=== PATIENT | male | born 1945 | race Caucasian/White ===

== ENCOUNTER 2018-12-19 06:08 | Observation (INO) | payer OTHER ==
[~2018-12-19] VITALS: Ht 182.9 cm; Wt 104.3 kg
--- NOTE | ~2018-12-19 | OP ---
[address] [address] OPERATIVE REPORT Name: LILIANA MCMANUS Room: [address]#: [id number] Admission: 12/19/18 Attend Phys: Viv Murcia MD Discharge: Date of : 49 Report #: [id number] THIS REPORT FOR: //name// CC: Melvin Murcia DATE OF SERVICE: 12/19/2018 SURGEON: Malorie Snyder DPM. LINE CLOSER: Janak Mckeon DPM PREOPERATIVE DIAGNOSES: 1. Achilles tendon rupture, left foot. 2. Retrocalcaneal exostosis, left foot. POSTOPERATIVE DIAGNOSES: 1. Insertional Achilles tendon rupture, left foot. 2. Retrocalcaneal exostosis, left foot. PROCEDURE: Repair of insertional Achilles tendon rupture with exostectomy and V-Y tendon lengthening, left foot. ANESTHESIA: General with popliteal block and local infiltrated block. HEMOSTASIS: Pneumatic thigh tourniquet at 350 mmHg. ESTIMATED BLOOD LOSS: Less than 5 mL. MATERIALS USED: Arthrex SpeedBridge, Arthrex amniotic matrix, 2-0 Vicryl, 4-0 Vicryl and 4-0 nylon. INJECTABLES: 20 mL of a 1:1 mixture of 0.5% Marcaine plain and 1% lidocaine plain. COMPLICATIONS: None. PROCEDURE IN DETAIL: The patient was brought into the operating room and then placed under general anesthesia. At this time, a pneumatic thigh tourniquet was then placed with adequate padding noted to the left lower extremity. After adequate sedation was obtained, the patient was placed on the operating room table in the prone position with surgical site clearly marked. At this time, the left lower extremity was then scrubbed, prepped and draped in the usual aseptic fashion. At this time, a timeout was performed with all personnel in the room in agreement. Left lower extremity was then exsanguinated utilizing an Esmarch bandage and the pneumatic thigh tourniquet was then inflated to [address] [place] [address] OPERATIVE REPORT Name: LILIANA MCMANUS Room: [address]#: [id number] Admission: 12/19/18 Attend Phys: Viv Murcia MD Discharge: Date of : 49 Report #: [id number]. Attention was then directed to the posterior aspect of the patient's left lower extremity and the Achilles tendon was then palpated along its medial and lateral borders. At this time, an incision was made with a #15 blade down to the level of subcutaneous tissue. Incision was approximately 7 cm in length along the lateral aspect of the Achilles tendon. Bleeding was controlled via Bovie at this time and care was taken to identify and retract all vital neurovascular tissues. The Achilles tendon paratenon was then longitudinally incised and reflected medially and laterally, thus exposing the underlying Achilles tendon and the side of the rupture was then noted at this time along with a remnant hematoma within the fracture site. The distal portion of the Achilles tendon was also noted and it was noted to be extremely dystrophic and nonviable at this time along with an extensive calcaneal exostosis laterally located. So, the nonviable Achilles tendon at its insertion was then removed at this time. The Achilles tendon was noted to have an approximately 4 cm gap at this time. So, a V-Y Achilles tendon lengthening was then performed at this time at the myotendinous junction with the fascia being released and the Achilles tendon insertion being reapproximated at an adequate length at this time. Attention was then redirected to the posterior aspect of the calcaneus where an osteotome was used to remove the exostosis within the posterior calcaneus and passed from the operative field. This was then sent for pathology at this time. Once all bony prominences were then removed from the calcaneus, the remaining aspect of the Achilles tendon was then palpated. There were multiple calcifications noted throughout and they were sharply removed and passed from the operative field at this time. Next, utilizing the Arthrex SpeedBridge anchors, two proximal holes were then drilled along the superior aspect of the calcaneus and two distal parallel holes were then drilled at this time. The holes were then tapped manually and the 2 proximal anchors were then inserted at this time. Anchors had FiberWire attached and the FiberWire was then used at this time to reapproximate the Achilles tendon at its insertion utilizing a [place] stitch. At this time, the FiberWire strands were then pulled through the remaining distal anchors, which were then inserted at this time at proper tension of the Achilles tendon at this time and the excess suture was then cut allowing for knotless system. Attachment of the Achilles tendon was then tested at this time, utilizing a Abraham test and plantar flexion at the calf was then noted at this time. The surgical site was then copiously irrigated at this time and the remaining aspects of the Achilles tendon were then reinforced utilizing 2-0 Vicryl. The V-Y lengthening was then also reapproximated at this time utilizing 2-0 Vicryl. Surgical site was again copiously irrigated with sterile normal saline and the peritenon was then reapproximated utilizing 2-0 Vicryl at this time. Upon reapproximation of the peritenon distally, it was noted to not fully cover the distal aspect of the Achilles tendon. So, at this time [place] [address] OPERATIVE REPORT Name: LILIANA MCMANUS ALLISON Room: [address] Karolina.#: [id number] Admission: 12/19/18 Attend Phys: Viv Murcia MD Discharge: Date of : 49 Report #: [id number] amniotic matrix, size 3 x 8 was then placed over the exposed aspect of the Achilles tendon and sutured into place with 2-0 Vicryl. The deep subcutaneous tissue was reapproximated utilizing 2-0 Vicryl and the subcuticular tissue reapproximated utilizing 4-0 Vicryl. Skin edges were then reapproximated utilizing 4-0 nylon in a running interlocking stitch fashion. Foot was then cleansed and dried and dressed with Betadine-soaked Adaptic, 4 x 4 gauze, Kerlix, and tape. The patient was then placed in neutral plantarflexion and a [id number] fiberglass cast utilizing stockinette soft rolls and a 3-inch fiberglass cast and 4-inch fiberglass cast. The patient tolerated the procedure and anesthesia well and was transferred from the operating room to the recovery room with vital signs stable and neurovascular status intact to the left lower extremity. Once the closure was completed, the pneumatic tourniquet was deflated and there was a prompt hyperemic response noted to the left lower extremity. The patient is to be admitted for 23-hour observation and pain control as well as physical therapy for gait training, nonweightbearing to the left lower extremity. Hospitalist to be consulted for medical management and the patient to be placed on Eliquis 2.5 mg twice daily starting tomorrow morning. By: [id number] [id number] Snyder DPM /rhonda
[~2018-12-19 06:08] MED LIST: ATENOLOL 25 MG25 M1 PO; BENADRYL25 MG PO; CINNAMON ALPHA1 EACH PO; CLOBETASOL EMOL15 GM TOP; FIBER-LAX625 MG PO; GLUCOSAMINE-CH1 EA16 PO; LOPERAMIDE 2 MG2 M1 PO; MULTIPLE VITAM1 EAC2 PO; OMEPRAZOLE 20 M20 M1 PO; TYLENOL EXTRA500 MG PO
[2018-12-19 06:54] LABS: HEMATOCRIT 39.4 % (42.0-52.0); HEMOGLOBIN 13.8 gm/dL (14.0-18.0); MCH 31.9 pg (26.0-34.0); MCV 91.2 fL (80.0-100.0); MPV 7.5 fl. (7.2-11.1); RBC 4.32 mil/uL (4.50-6.00); RDW-CV 12.5 % (10.5-14.5); WBC 10.3 thou/uL (4.0-11.0)
[2018-12-19 06:58] LABS: CALCIUM 8.4 mg/dL (8.5-10.1); POTASSIUM 3.5 mmol/L (3.5-5.1)
[2018-12-19 07:03] LABS: ALBUMIN 3.4 g/dL (3.4-5.0); TOTAL BILIRUBIN 0.4 mg/dL (<0.1-1.0); TOTAL PROTEIN 7.2 g/dL (6.4-8.2)
[2018-12-19 13:00] VITALS: BP 132/66
[2018-12-19 16:00] VITALS: BP 125/55
--- NOTE | 2018-12-19 17:39 | EKG ---
[place] [address] ELECTROCARDIOGRAM REPORT Name: LILIANA MCMANUS Room: [address] M.R.#: [id number] Admission: 12/19/18 Attend Phys: Viv Murcia MD Discharge: Date of : 49 Report #: [id number] THIS REPORT FOR: //name// [facility] Test Date: 2018-12-19 Test Time: 06:39:25 Pat Name: LILIANA MCMANUS Department: Room: [facility] Gender: M [place]: BEE : 1945 Requested By: Malorie Snyder Order Number: [id number] Anila MD: Josesito Blount Measurements Intervals [place] Rate: 59 P: 27 OK: 186 QRS: -15 QRSD: 123 T: 9 QT: 444 QTc: 440 Interpretive Statements Sinus rhythm IVCD, consider atypical RBBB No previous ECG available for comparison Electronically Signed On 12-19-2018 17:39:27 CDT by Josesito Blount [email or web address] <ELECTRONICALLY SIGNED> By: Josesito Blount MD, [facility] 12/19/18 1739 8 Josesito Blount MD, FACC /EPI
--- NOTE | 2018-12-19 18:34 | NUR ---
PT RESTING IN BED SINCE PREVIOUS NOTE. VITALS STABLE. UP WITH ASSIST TO BATHROOM. NWB ON L FOOT. CAPNO ON. 2LOX ON. DRESSING CLEAN, DRY AND INTACT. FALL PRECAUTIONS IN PLACE. CALL LIGHT WITHIN REACH. WILL CONTINUE TO MONITOR.
[2018-12-19 20:00] VITALS: BP 114/54
[2018-12-20] VITALS: BP 111/44
[2018-12-20 04:00] VITALS: BP 97/41
--- NOTE | 2018-12-20 07:30 | NUR ---
Alert and oriented x 4. LLE in hard cast elevated on pillow. He doesn't have any feeling in LLE from block. He is up with his roller walker w/stand by assist to bathroom. He is voiding adequately. Denies pain. He has slept well.
[2018-12-20 08:00] VITALS: BP 146/71
[2018-12-20] MEDS ORDERED: HYDROCODON-ACE1 EAC7 PO (08:03)
[2018-12-20] MEDS ORDERED: PERCOCET PO (08:03)
[2018-12-20] MEDS ORDERED: ELIQUIS2.5 MG PO (08:03)
[2018-12-20 12:51] VITALS: BP 146/71
[2018-12-20 13:01] VITALS: BP 146/71
--- NOTE | 2018-12-20 13:23 | NUR ---
PT.CONFIRMED PHARMACY. IN ELIQUIS PRESCRIPTION WRITTEN TO PT.'S PHARMACY- [facility]. COPAY WAS $15. INFORMED PT.AND . EDUCATED ON NOTIFYING IF ANY UNUSUAL BLEEDING.
--- NOTE | 2018-12-20 13:49 | NUR ---
ASSUMED CARE OF PATIENT AT APPROX 1100. PATIENT REMAINED ALERT AND OREITNED. VSS ON ROOM AIR. NO COMPLAINTS OF PAIN. PATIENT DISCHARGED AT 1347 WITH WITH ALL PERSONAL BELONGINGS, PRESCRIPTIONS, AND DISCHARGE INFOMATION.
== END 2018-12-20 13:47 | disposition home or self-care (01) ==
LOC: M.SUR 06:08 → M.TBA 10:47 → M.ORTHSURG 10:47 → M.SUR 11:21 → M.ORTHSURG 12-20 13:47
PROVIDERS: Podiatrist; ADMIT Internal Medicine
DX: S86.012A Strain of left Achilles tendon, initial encounter (principal); M77.32 Calcaneal spur, left foot; I10 Essential (primary) hypertension; K21.9 Gastro-esophageal reflux disease without esophagitis; F17.210 Nicotine dependence, cigarettes, uncomplicated; E11.9 Type 2 diabetes mellitus without complications; M19.90 Unspecified osteoarthritis, unspecified site; Z79.899 Other long term (current) drug therapy; Z96.641 Presence of right artificial hip joint; Z90.49 Acquired absence of other specified parts of digestive tract; Z98.890 Other specified postprocedural states; Z98.52 Vasectomy status; Z90.89 Acquired absence of other organs; W49.09XA Other specified item causing external constriction, initial encounter; Y93.9 Activity, unspecified; Y92.9 Unspecified place or not applicable; Y99.9 Unspecified external cause status